=== PATIENT | female | born 1945 | race Caucasian/White ===

== ENCOUNTER → 2016-09-26 | Outpatient (CLI) | payer MEDICARE, BC ==
[~2016-09-26] MED LIST: ADVIL 200MG TA200 MG PO; B COMPLEX PO; BENADRYL25 MG PO; BENEFIBER PO; CLARITIN 1010 MG/TAB PO; CLEOCIN HCL300 MG PO; COUMADIN 5MG5 MG/TAB PO; CRANBERRY PO; DARVOCET-N-101 UDTAB PO; FERROUS SU325 MG/TAB PO; FISH OIL GUMMIES PO; FLAXSEED OIL1 CAP PO; FLONASE NASAL S16 GM NS; FOLIC ACID PO; MUCINEX 60600 MG/TA1 PO; MUCINEX 60600 MG/TAB PO; MULTAQ400 MG PO; MVI; NATURAL FLAX1000 MG PO; NATURAL MAGNES200 MG PO; NORCO 325 MG-51 TAB PO; OCUVITE1 TA1 PO; PRAVACHOL 20MG20 MG PO; PRILOSEC 20MG20 MG PO; TOPROL XL 25MG25 MG PO; TRIEST PO; TYLENOL 500MG500 MG PO; TYLENOL 8 HR PO; VITAMIN C500 MG PO; VITAMINC1000TA; ZEGERID 20 MG-11 CAP PO; [UNRECOGNIZED DRUG - OTHER]; [UNRECOGNIZED DRUG - OTHER] TOP
== END ==
LOC: ZCOL.LAB 13:05
DX: R00.0 Tachycardia, unspecified (principal)

== ENCOUNTER 2016-11-28 08:01 | Outpatient (CLI) | payer MEDICARE, BC ==
[2008-07-11 07:03] VITALS: BP 121/58
[~2016-11-28] VITALS: Ht 160 cm; Wt 113.6 kg
[2016-11-28] VITALS (11 sets, daily range): BP systolic 107–139; BP diastolic 54–95; PULSE 57–116; TEMP 97
[~2016-11-28 08:01] MED LIST changes: -B COMPLEX PO; -BENEFIBER PO; -CLARITIN 1010 MG/TAB PO; -CLEOCIN HCL300 MG PO; -COUMADIN 5MG5 MG/TAB PO; -CRANBERRY PO; -FISH OIL GUMMIES PO; -MUCINEX 60600 MG/TA1 PO; -MULTAQ400 MG PO; -NATURAL FLAX1000 MG PO; -NATURAL MAGNES200 MG PO; -NORCO 325 MG-51 TAB PO; -OCUVITE1 TA1 PO; -PRAVACHOL 20MG20 MG PO; -TOPROL XL 25MG25 MG PO; -TYLENOL 8 HR PO; -VITAMINC1000TA; -ZEGERID 20 MG-11 CAP PO; -[UNRECOGNIZED DRUG - OTHER]; -[UNRECOGNIZED DRUG - OTHER] TOP
[2016-11-28 08:42] LABS: INR 2.5 (0.8-3.0); PROTHROMBIN TIME 28.7 SECONDS (9.7-12.8)
[2016-11-28] MEDS ORDERED: MUCINEX 60600 MG/TA1 PO (08:45)
[2016-11-28] MEDS ORDERED: TYLENOL 8 HR PO (08:45)
[2016-11-28] MEDS ORDERED: CLARITIN 1010 MG/TAB PO (08:46)
[2016-11-28] MEDS ORDERED: NATURAL FLAX1000 MG PO (08:51)
[2016-11-28] MEDS ORDERED: CRANBERRY PO (08:52)
[2016-11-28] MEDS ORDERED: NATURAL MAGNES200 MG PO (08:52)
[2016-11-28] MEDS ORDERED: B COMPLEX PO (08:53)
[2016-11-28] MEDS ORDERED: VITAMINC1000TA (08:56)
[2016-11-28] MEDS ORDERED: OCUVITE1 TA1 PO (08:57)
[2016-11-28] MEDS ORDERED: FISH OIL GUMMIES PO (09:03)
[2016-11-28] MEDS ORDERED: BENEFIBER PO ×2 (09:04→09:11)
[2016-11-28] MEDS ORDERED: [UNRECOGNIZED DRUG - OTHER] TOP (09:05)
[2016-11-28] MEDS ORDERED: PRAVACHOL 20MG20 MG PO (09:06)
[2016-11-28] MEDS ORDERED: ZEGERID 20 MG-11 CAP PO (09:07)
[2016-11-28] MEDS ORDERED: [UNRECOGNIZED DRUG - OTHER] (09:08)
[2016-11-28] MEDS ORDERED: TOPROL XL 25MG25 MG PO (09:13)
[2016-11-28] MEDS ORDERED: NORCO 325 MG-51 TAB PO (09:13)
[2016-11-28] MEDS ORDERED: COUMADIN 5MG5 MG/TAB PO (09:14)
[2016-11-28 09:26] LABS: POTASSIUM 3.9 mmol/L (3.4-5.0)
[2016-11-28 10:00] LABS: THYROID STIMULATING HORMONE 0.927 uIU/mL (0.465-4.680)
[2016-11-28] MEDS ORDERED: MULTAQ400 MG PO (11:17)
[2016-11-28 11:43] LABS: BILIRUBIN,DIRECT 0.7 mg/dL (0.0-0.4); TOTAL PROTEIN 7.2 gm/dL (6.4-8.2)
[2016-11-28 12:48] LABS: THYROID STIMULATING HORMONE 0.911 uIU/mL (0.465-4.680)
== END 2016-11-28 13:56 | disposition home or self-care (01) ==
LOC: COL.CAR 08:01
PROVIDERS: Internal Medicine Cardiovascular Disease
DX: I48.92 Unspecified atrial flutter (principal); K21.9 Gastro-esophageal reflux disease without esophagitis; E78.5 Hyperlipidemia, unspecified; M54.2 Cervicalgia; Z96.652 Presence of left artificial knee joint; E66.9 Obesity, unspecified; G47.30 Sleep apnea, unspecified; Z90.49 Acquired absence of other specified parts of digestive tract; L98.9 Disorder of the skin and subcutaneous tissue, unspecified; Z79.01 Long term (current) use of anticoagulants; Z80.9 Family history of malignant neoplasm, unspecified; Z80.41 Family history of malignant neoplasm of ovary
CPT/HCPCS: J2250; J3010; J7040

== ENCOUNTER 2017-01-02 07:14 | Outpatient (CLI) | payer MEDICARE, BC ==
[2008-07-11 07:03] VITALS: BP 121/58
[~2017-01-02] VITALS: Ht 160 cm; Wt 113.6 kg
[~2017-01-02 07:14] MED LIST changes: +B COMPLEX PO; +BENEFIBER PO; +CLARITIN 1010 MG/TAB PO; +COUMADIN 5MG5 MG/TAB PO; +CRANBERRY PO; +FISH OIL GUMMIES PO; +MUCINEX 60600 MG/TA1 PO; +MULTAQ400 MG PO; +NATURAL FLAX1000 MG PO; +NATURAL MAGNES200 MG PO; +NORCO 325 MG-51 TAB PO; +OCUVITE1 TA1 PO; +PRAVACHOL 20MG20 MG PO; +TOPROL XL 25MG25 MG PO; +TYLENOL 8 HR PO; +VITAMINC1000TA; +ZEGERID 20 MG-11 CAP PO; +[UNRECOGNIZED DRUG - OTHER]; +[UNRECOGNIZED DRUG - OTHER] TOP
[2017-01-02 07:55] VITALS: BP 123/49; PULSE 61; TEMP 97.9
[2017-01-02] MEDS ORDERED: CLEOCIN HCL300 MG PO (09:53)
== END 2017-01-02 10:19 | disposition home or self-care (01) ==
LOC: COL.CAR 07:14
DX: I48.92 Unspecified atrial flutter (principal); K21.9 Gastro-esophageal reflux disease without esophagitis; E66.9 Obesity, unspecified; E78.5 Hyperlipidemia, unspecified; M17.9 Osteoarthritis of knee, unspecified; Z90.710 Acquired absence of both cervix and uterus; Z90.49 Acquired absence of other specified parts of digestive tract; Z96.653 Presence of artificial knee joint, bilateral; Z79.01 Long term (current) use of anticoagulants; Z82.49 Family history of ischemic heart disease and other diseases of the circulatory system
CPT/HCPCS: 27124; C1764

== ENCOUNTER → 2017-04-16 | Outpatient (CLI) | payer MEDICARE, BC ==
[~2017-04-16] MED LIST changes: +CLEOCIN HCL300 MG PO
== END ==
LOC: MC.RAD 10:00
DX: Z12.31 Encounter for screening mammogram for malignant neoplasm of breast (principal)

== ENCOUNTER → 2018-05-07 | Outpatient (CLI) | payer MEDICARE, BC | LOC: MC.RAD 04-30 09:40 | DX: Z12.31 Encounter for screening mammogram for malignant neoplasm of breast (principal) ==

== ENCOUNTER 2019-03-16 10:12 | Inpatient (IN) | payer MEDICARE, BC ==
[~2019-03-16] VITALS: Ht 162.6 cm; Wt 99.6 kg
[2019-03-30] VITALS (11 sets, daily range): BP systolic 108–140; BP diastolic 48–76; PULSE 71–123; TEMP 97.5–98.6
[2019-03-30] MEDS ORDERED: TYLENOL 8 HR PO (12:15)
[2019-03-30] MEDS ORDERED: MUCINEX 60600 MG/TA1 PO (12:16)
[2019-03-30] MEDS ORDERED: CLARITIN-D 10 M1 T24 PO (12:18)
[2019-03-30] MEDS ORDERED: FLAXSEED OIL1000 MG PO (12:19)
[2019-03-30] MEDS ORDERED: CRANBERRY500 M3 PO (12:20)
[2019-03-30] MEDS ORDERED: MAGNESIUM200 MG PO (12:21)
[2019-03-30] MEDS ORDERED: VITAMIN B COMPL1 SGL PO (12:22)
[2019-03-30] MEDS ORDERED: VITAMINC1000TA PO (12:24)
[2019-03-30] MEDS ORDERED: OCUVITE1 TA1 PO (12:24)
[2019-03-30] MEDS ORDERED: BENEFIBER PO (12:25)
[2019-03-30] MEDS ORDERED: [UNRECOGNIZED DRUG - OTHER] PO (12:27)
[2019-03-30] MEDS ORDERED: LACTAID3000 UNIT PO (12:28)
[2019-03-30] MEDS ORDERED: OMEGA-3 1000 MG1 CAP PO (12:29)
[2019-03-30] MEDS ORDERED: ELIQUIS 5MG PO (12:30)
[2019-03-30] MEDS ORDERED: PRAVACHOL 20MG20 MG PO (12:31)
[2019-03-30] MEDS ORDERED: PRILOSEC 20MG20 MG PO (12:31)
[2019-03-30] MEDS ORDERED: NORCO 325 MG-51 TAB PO (12:32)
[2019-03-30] MEDS ORDERED: CELEBREX 200MG200 MG PO (12:34)
[2019-03-30] MEDS ORDERED: FLONASEALLERGY NS (12:35)
[2019-03-31 04:17] VITALS: BP 105/50; PULSE 90; TEMP 98.4
[2019-03-31 06:07] LABS: BASO % 0.1 % (0.0-2.0); GRAN # 8.1 (1.4-6.5); GRAN % 86.8 % (42.2-75.2); HEMATOCRIT 40.2 % (37.0-47.0); HEMOGLOBIN 13.1 g/dl (12.5-16.0); LYMPH # 0.6 (1.2-3.4); MEAN CELL VOLUME 92 fl (80.0-100.0); MEAN CORPUSCULAR HEMOGLOBIN 30 pg (27.0-31.0); MEAN CORPUSCULAR HGB CONC 33 g/dl (33.0-37.0); MEAN PLATELET VOLUME 11.2 fl (7.4-10.4); MONO # 0.6 (0.1-0.6); MONO % 6.8 % (1.7-9.3); PLATELET COUNT 161 K/mm3 (130-400); RED BLOOD COUNT 4.36 M/mm3 (4.10-5.30); REDCELL DISTRIBUTION WIDTH-CV 13.8 % (11.5-14.5)
[2019-03-31 06:14] LABS: CALCIUM 9.2 mg/dL (8.4-10.2); CREATININE, serum 0.64 (0.52-1.25); MAGNESIUM 1.9 mg/dL (1.6-2.3); POTASSIUM 4.4 mmol/L (3.4-5.0)
[2019-03-31 08:46] VITALS: BP 117/58; BP 117/580; PULSE 97; TEMP 97.6
[2019-03-31 12:19] VITALS: BP 99/46; PULSE 87; TEMP 97.4
[2019-03-31 12:48] VITALS: BP 103/50
[2019-03-31 16:25] VITALS: BP 99/57; PULSE 81; TEMP 97.7
[2019-03-31 20:17] VITALS: BP 94/41; PULSE 62; TEMP 98.5
[2019-04-01 00:29] VITALS: BP 122/48; PULSE 58; TEMP 98.7
[2019-04-01 04:21] VITALS: BP 129/76; PULSE 81; TEMP 98.5
[2019-04-01 09:26] VITALS: BP 145/61; PULSE 89; TEMP 98.2
[2019-04-01 11:01] VITALS: BP 117/57; PULSE 74; TEMP 97.6
[2019-04-01 16:26] VITALS: BP 127/69; PULSE 77; TEMP 98.4
[2019-04-01 20:00] VITALS: BP 135/74; PULSE 78; TEMP 98.2
[2019-04-02] VITALS: BP 131/70; PULSE 76; TEMP 98.3
[2019-04-02 03:53] VITALS: BP 136/77; PULSE 69; TEMP 97.7
[2019-04-02 07:56] VITALS: BP 131/64; PULSE 84; TEMP 97.6
[2019-04-02] MEDS ORDERED: ROXICODONE 55 MG/TAB PO (08:50)
[2019-04-02] MEDS ORDERED: NEURONTIN100 MG/CAP PO (08:50)
[2019-04-02 12:36] VITALS: BP 141/60; PULSE 85; TEMP 98
== END 2019-04-02 14:50 | disposition home or self-care (01) | DRG 330 ==
LOC: INPTSU 03-30 10:32 → SURG 03-30 12:30
PROVIDERS: ADMIT Surgery
PROC: 8E0W4CZ Robotic Assisted Procedure of Trunk Region, Percutaneous Endoscopic Approach (ICD-10-PCS; 2019-03-30)
PROC: 0DTF0ZZ Resection of Right Large Intestine, Open Approach (ICD-10-PCS; principal; 2019-03-30 12:30)
DX: C18.2 Malignant neoplasm of ascending colon (principal); C77.2 Secondary and unspecified malignant neoplasm of intra-abdominal lymph nodes; M19.211 Secondary osteoarthritis, right shoulder
CPT/HCPCS: A4314; J1100; J1200; J1956; J2405; J2704; J3010; J7120

== ENCOUNTER 2019-05-04 08:23 | Day surgery (SDC) | payer MEDICARE, BC ==
[2008-07-11 07:03] VITALS: BP 121/58
[~2019-05-04] VITALS: Ht 162.6 cm; Wt 99.3 kg
[~2019-05-04 08:23] MED LIST changes: +CELEBREX 200MG200 MG PO; +CLARITIN-D 10 M1 T24 PO; +CRANBERRY500 M3 PO; +ELIQUIS 5MG PO; +FLAXSEED OIL1000 MG PO; +FLONASEALLERGY NS; +LACTAID3000 UNIT PO; +MAGNESIUM200 MG PO; +NEURONTIN100 MG/CAP PO; +OMEGA-3 1000 MG1 CAP PO; +ROXICODONE 55 MG/TAB PO; +VITAMIN B COMPL1 SGL PO; +VITAMINC1000TA PO; +[UNRECOGNIZED DRUG - OTHER] PO
[2019-05-04] MEDS ORDERED: NORCO 325 MG-51 TAB PO ×2 (08:56→11:05)
[2019-05-04 09:12] VITALS: BP 138/83; PULSE 88; TEMP 97.7
[2019-05-04 12:00] VITALS: BP 135/61; PULSE 93; TEMP 97.8
--- NOTE | 2019-05-04 12:00 | NUR ---
Pt arrived to [facility] after surgery accompanied by [employer]. Pt is awake and alert upon arrival and requesting iced water. Pt's vital signs are stable and WNL. Incision is well defined, without redness, and no drainage. Pt denies any pain nor does she complain of nausea. Call light within reach and at bedside - iced water brought to patient.
--- NOTE | 2019-05-04 12:15 | NUR ---
Pt requesting more water and pudding. She successfully ate pudding without N/V. Pt sitting up in bed comfortably with call light within reach.
[2019-05-04 12:25] VITALS: BP 128/74; PULSE 89
[2019-05-04 12:30] VITALS: BP 131/76; PULSE 88
--- NOTE | 2019-05-04 12:30 | NUR ---
Pt resting/dozing comfortably in bed. Eating and drinking well. When asked, pt states that she is ready to go home and feels comfortable with going home. Notified patient that we would like to monitor her for 30 more minutes to make sure VSS and WNL and continue to do so. Pt agrees with plan.
[2019-05-04 13:00] VITALS: BP 125/74; PULSE 89
--- NOTE | 2019-05-04 13:00 | NUR ---
Pt resting comfortably and states that she is ready to go home. VSS and WNL
--- NOTE | 2019-05-04 13:42 | NUR ---
Pt ready to go home, and she meets criteria for discharge. Reviewed discharge information with patient and including port a cath information, new med information, adverse signs/symptoms to watch for, contact information in case of concerns/questions, and follow up appointment. Patient and agree with the plan and express understanding of the plan. They have no further concerns/questions at this time, but understand how to get their needs met. Pt was transferred to exit via wheelchair to private car.
== END 2019-05-04 13:43 | disposition home or self-care (01) ==
LOC: SDCO 08:23
DX: C18.3 Malignant neoplasm of hepatic flexure (principal); Z79.01 Long term (current) use of anticoagulants; E78.2 Mixed hyperlipidemia; G47.30 Sleep apnea, unspecified; M19.90 Unspecified osteoarthritis, unspecified site; I48.4 Atypical atrial flutter; K21.9 Gastro-esophageal reflux disease without esophagitis; K76.0 Fatty (change of) liver, not elsewhere classified; J30.2 Other seasonal allergic rhinitis; G89.29 Other chronic pain; Z90.710 Acquired absence of both cervix and uterus; Z90.49 Acquired absence of other specified parts of digestive tract; Z96.653 Presence of artificial knee joint, bilateral; Z85.828 Personal history of other malignant neoplasm of skin; Z80.1 Family history of malignant neoplasm of trachea, bronchus and lung; Z80.0 Family history of malignant neoplasm of digestive organs; Z80.41 Family history of malignant neoplasm of ovary; Z80.51 Family history of malignant neoplasm of kidney; Z80.8 Family history of malignant neoplasm of other organs or systems; Z83.3 Family history of diabetes mellitus; Z82.49 Family history of ischemic heart disease and other diseases of the circulatory system; Z88.1 Allergy status to other antibiotic agents; Z88.2 Allergy status to sulfonamides; Z91.048 Other nonmedicinal substance allergy status
CPT/HCPCS: C1788; J1644; J1885; J2250; J2405; J2704; J3010; J3370; J7120

== ENCOUNTER → 2019-05-21 | Outpatient (CLI) | payer MEDICARE, BC | LOC: MC.RAD 11:14 | DX: Z12.31 Encounter for screening mammogram for malignant neoplasm of breast (principal) ==

== ENCOUNTER → 2020-01-21 | Outpatient (CLI) | payer MEDICARE, BC | LOC: ZCOL.LAB 16:27 | DX: L02.212 Cutaneous abscess of back [any part, except buttock and flank] (principal) ==

== ENCOUNTER → 2020-05-23 | Outpatient (CLI) | payer MEDICARE, BC | LOC: MC.RAD 10:57 | DX: Z12.31 Encounter for screening mammogram for malignant neoplasm of breast (principal) ==

== ENCOUNTER → 2021-06-19 | Outpatient (CLI) | payer MEDICARE, BC | LOC: MC.RAD 16:21 | DX: Z12.31 Encounter for screening mammogram for malignant neoplasm of breast (principal); Z95.818 Presence of other cardiac implants and grafts ==

== ENCOUNTER → 2023-08-27 | Outpatient (CLI) | payer MEDICARE, BC | LOC: MC.RAD 09:34 | DX: Z12.31 Encounter for screening mammogram for malignant neoplasm of breast (principal) ==